=== PATIENT | female | born 1965 | race Caucasian/White ===

== ENCOUNTER 2017-10-14 08:02 | Day surgery (SDC) | payer BC, OTHER ==
[2017-09-29 11:45] VITALS: BMI 24.6
[2017-10-14] MEDS ORDERED: DESFLURANE GAS 240 ML BOTTLE IH ONE (08:35)
[2017-10-14] MEDS ORDERED: MIDAZOLAM HCL 2 MG/2 ML SINGLE DOSE VIAL ONE (08:39)
[2017-10-14] MEDS ORDERED: ONDANSETRON 4 MG/2 ML VIAL IVPUSH PRN (09:19)
[2017-10-14] MEDS ORDERED: LACTATED RINGERS SOLUTION 1,000 ML IV SCH (09:30)
[2017-10-14] MEDS ORDERED: SILVER NITRATE 75% APPLIC STCK 1 PKT EACH TP ONE (10:15)
[2017-10-14] MEDS ORDERED: ACETAMINOPHEN INJECTION 100 ML IVPB ONE (11:11)
[2017-10-14] MEDS ORDERED: ACETAMINOPHEN 1000 MG/100 ML VIAL (NON FORMULARY) IVPB ONE (11:45)
--- NOTE | 2017-10-14 11:46 | OP ---
DATE OF OPERATION: 10/14/2017 PREOPERATIVE DIAGNOSES: Fibroid uterus. Pelvic pain. POSTOPERATIVE DIAGNOSES: Fibroid uterus. Pelvic pain. PROCEDURES: Diagnostic hysteroscopy and dilation and curettage. SURGEON: Que Garcia DO ANESTHESIA: General. INTRAVENOUS FLUIDS: 250. DISTENTION MEDIA: In 100 mL. Out 50. Deficit 50 mL. ESTIMATED BLOOD LOSS: 50 mL. URINE OUTPUT: 50 mL. SPECIMEN: Endometrial curetting, ECC. COMPLICATIONS: None. FINDINGS: Examination under anesthesia revealed normal-size, anteverted uterus. Hysteroscopy showed normal uterine cavity, bilateral ostia appeared to be normal. PROCEDURE: The patient was taken to the OR where general anesthesia was administered without difficulty. She was placed in the dorsal lithotomy position, utilizing the stirrups, and examination under anesthesia revealed the findings above. The patient was then prepped and draped in the usual sterile fashion. A weighted speculum was inserted in the posterior aspect of the vagina. A single-tooth tenaculum was used to grasp the anterior lip of the cervix. The uterus was carefully sounded to 7 cm. The cervical os was sequentially dilated to accommodate the hysteroscope using dilators. The hysteroscope was introduced under direct visualization. The uterus was distended with normal saline. The aforementioned findings were noted. The hysteroscope was then withdrawn and the cervix was further dilated to accommodate the sharp curettage. The uterus was curettaged in a clockwise fashion until a sensation was noted in all aspects of the uterus. The endometrial scrapings and ECC were sent to Pathology. The tenaculum was removed from the cervix with bleeding noted from the 11 o'clock position puncture site. Silver nitrate applied with excellent hemostasis. The patient tolerated the procedure well. The instrument and sponge counts were correct x2. The patient was awakened from general anesthesia. Taken to the recovery room in stable condition. The patient will go home after recovery from anesthesia and meeting all criteria for discharge. She was given instructions regarding follow up in [address] Garcia's office. DO COLLEEN Neff/[id number]
[2017-10-14 12:04] VITALS: TEMP 97.5
[2017-10-14 17:49] VITALS: BP 113/74; PULSE 61
--- NOTE | 2017-10-18 18:06 | PATH ---
Surgical Pathology Report Patient Name: JJ NEVAREZ [facility]. Rec. #: [id number] /Age/Gender: 1965 (Age: 52) / F Account: [id number] Location: [facility] Taken: 10/14/2017 Received: 10/14/2017 Reported: 10/18/2017 Physicians: Que Garcia DO Specimen(s) Received A: ENDOMETRIAL CURETTINGS B: ENDOCERVICAL CURETTINGS Clinical History Fibroid uterus Final Diagnosis A. ENDOMETRIUM, CURETTAGE: BENIGN SQUAMOUS MUCOSA AND ENDOCERVICAL GLANDULAR TISSUE. NO DEFINITIVE ENDOMETRIAL TISSUE IS IDENTIFIED. B. ENDOCERVIX, CURETTAGE: BENIGN SQUAMOUS MUCOSA AND ENDOCERVICAL GLANDULAR TISSUE. Electronically Signed Sulema Richards M.D. Gross Description A. Received in formalin labeled "endometrial curettings," is a 1.2 x 1.0 x 0.2 cm aggregate of blood-tinged mucus, possibly containing soft tissue fragments. The formalin is filtered and the specimen is entirely submitted in one cassette. B. Received in formalin labeled "endocervical curetting," is a 0.6 x 0.5 x 0.2 cm aggregate of blood-tinged mucus, possibly containing soft tissue fragments. The formalin is filtered and the specimen is entirely submitted in one cassette. 10/14/201710/14/2017
== END 2017-10-14 13:10 | disposition home or self-care (01) ==
LOC: JASU-SURG 08:02
PROVIDERS: ATTEND Obstetrics & Gynecology
PROC: 0UDB7ZX Extraction of Endometrium, Via Natural or Artificial Opening, Diagnostic (ICD-10-PCS; principal; 2017-10-14 10:00)
PROC: 0UJD8ZZ Inspection of Uterus and Cervix, Via Natural or Artificial Opening Endoscopic (ICD-10-PCS; 2017-10-14 10:00)
DX: D25.9 Leiomyoma of uterus, unspecified (principal)
CPT/HCPCS: 84703; 88305-TC; 94760; J0131